=== PATIENT | male | born 1980 | race Caucasian/White ===

== ENCOUNTER → 2016-11-07 | Day surgery (SDC) | payer BC ==
[~2016-11-07] MED LIST: ADVIL200 M1 PO
--- NOTE | ~2016-11-07 | OR ---
Unit #: [id number] #: [id number] Patient: JACINTA HUNTER [id number] [address] [place], [place] [address] [id number] O MR#: [id number] NAME: JACINTA HUNTER ROOM: Date of Procedure: 11/07/2016 Admission Date: 11/07/2016 Surgeon: Onesimo Padron M.D. : 1980 Attending Physician: Onesimo Padron M.D. [facility] OPERATIVE NOTE PROCEDURE PERFORMED Lumbar epidural steroid injection under x-ray guided needle placement with provider administered conscious sedation. PREOPERATIVE DIAGNOSES 1. Acute lumbar radiculitis. 2. Herniated disk, L5-S1. 3. Herniated disk, L4-L5. 4. Degenerative joint disease, lumbosacral spine. 5. Degenerative disk disease, lumbosacral spine. INDICATIONS FOR PROCEDURE The patient presents today with a history of recurrent lumbar radicular pain secondary to his herniated disk. His symptomatology is compatible with his description of pain as well as compatible with his x-ray studies. His radiculitis is failed to respond to conservative measures, which include nonsteroidal anti-inflammatory agents and self-directed exercises/physical therapy. The patient and I discussed the risks and benefits of proceeding today with lumbar approach epidural steroid injection, he and I agreed this would be the appropriate course of action. DESCRIPTION OF PROCEDURE He was then taken to the operating room, where he was prepped and draped in a sterile manner. Standard monitors were applied. He was sedated with 2 mg of IV Versed and lumbar epidural space was accessed at the L5-S1 level using loss of resistance technique and x-ray guidance. Needle placement was confirmed with injection of 2 mL of Omnipaque. There was good superior and inferior flow to this L5-S1 placed needle. Following successful needle placement confirmation which required an x-ray time of 3 seconds, the patient received an injectate containing 2 mL normal saline, 2 mL of 0.25% bupivacaine, and 80 mg of methylprednisolone. He tolerated this procedure well. He was discharged home with followup instructions, which include an offer to return to this clinic as early as 12/28/2016 if we could be of further service to him. We would ideally like to see him sooner, but he is going to be out of town until that date. Dictated by... Demar Sandoval/donato Unit #: [id number] #: [id number] Patient: JACINTA HUNTER TD: 11/07/2016 23:16 JOB #: [id number] [facility] OPERATIVE NOTE Page 1 of 1 X Pedro Padron MD PROCEDURE OPERATIVE NOTE
== END | disposition home or self-care (01) ==
LOC: CCSC 10-26 11:45
DX: M51.17 Intervertebral disc disorders with radiculopathy, lumbosacral region (principal); M51.16 Intervertebral disc disorders with radiculopathy, lumbar region; M47.27 Other spondylosis with radiculopathy, lumbosacral region; F17.210 Nicotine dependence, cigarettes, uncomplicated; Z79.899 Other long term (current) drug therapy; Z90.49 Acquired absence of other specified parts of digestive tract; Z98.890 Other specified postprocedural states
CPT/HCPCS: J1040; J2250

== ENCOUNTER → 2017-01-09 | Day surgery (SDC) | payer BC ==
--- NOTE | ~2017-01-09 | OR ---
Unit #: [id number] #: [id number] Patient: JACINTA HUNTER [id number] [address] [place], [place] [address] [id number] O MR#: [id number] NAME: JACINTA HUNTER ROOM: Date of Procedure: 01/09/2017 Admission Date: 01/09/2017 Surgeon: Onesimo Padron M.D. : 1980 Attending Physician: Pedro Padron Primary Care Physician: Zach Ballesteros M.D. [facility] OPERATIVE NOTE PROCEDURE PERFORMED Lumbar epidural steroid injection under x-ray guided needle placement. PREOPERATIVE DIAGNOSES 1. Acute lumbar radiculitis. 2. Herniated disk, L5-S1. 3. Spinal stenosis, L5-S1. 4. Degenerative joint disease, lumbosacral spine. 5. Degenerative disk disease, lumbosacral spine. INDICATIONS FOR PROCEDURE The patient presents today status post one previous lumbar approach epidural steroid injection for an acute radiculitis, which had failed to respond to conservative therapy. He states he got almost 100% relief for approximately 3 weeks, after which his pain begin to return in a crescendo pattern. He has now reached the point that it is interfering with his activities of daily living. After discussing risks and benefits of proceeding today with a lumbar approach epidural steroid injection, the patient agreed this would be the appropriate course of action. DESCRIPTION OF PROCEDURE He was then taken to the operating room, where he was prepped and draped in a sterile manner. Standard monitors were applied. He refused all forms of sedation and lumbar epidural space accessed at the L5-S1 level using loss of resistance technique and x-ray guidance. Needle placement was confirmed with injection of 2 mL of Omnipaque. There was good superior and inferior flow at this L5-S1 needle placement. Total x-ray time was 5 seconds. Following successful needle placement confirmation, the patient received an injectate containing 4 mL normal saline and 80 mg of methylprednisolone. He tolerated this procedure well. He was discharged home with followup instructions, which include offer to return this clinic as early as 04/19/2017 if we could be of further service to him. Dictated by... Onesimo Padron M.D. ZOLTAN/donato TD: 01/09/2017 16:21 JOB #: [id number] Unit #: [id number] #: [id number] Patient: JACINTA HUNTER [facility] OPERATIVE NOTE Page 1 of 1 X Pedro Padron MD PROCEDURE OPERATIVE NOTE
== END | disposition home or self-care (01) ==
LOC: CCSC 12-28 15:15
DX: M51.17 Intervertebral disc disorders with radiculopathy, lumbosacral region (principal); M47.27 Other spondylosis with radiculopathy, lumbosacral region; M48.07 Spinal stenosis, lumbosacral region; F17.210 Nicotine dependence, cigarettes, uncomplicated; Z79.1 Long term (current) use of non-steroidal anti-inflammatories (NSAID); Z90.49 Acquired absence of other specified parts of digestive tract; Z98.890 Other specified postprocedural states
CPT/HCPCS: J1040; J2250